=== PATIENT | male | born 1975 | race Caucasian/White ===

== ENCOUNTER 2022-03-22 11:19 | Inpatient (IN) | payer BC, OTHER ==
[~2022-03-22] VITALS: Ht 180.3 cm; Wt 92.0 kg
[2022-03-22] MEDS ORDERED: SODIUM CHLORIDE 0.9% 1,000 ML IV ONE ×2 (12:30→15:15)
[2022-03-22] MEDS ORDERED: SODIUM CHLORIDE 0.9% 1,000 ML IVB ONE (12:30)
[2022-03-22 13:13] LABS: Partial Thromboplastin Time 27.6 sec (24.6-33.4)
[2022-03-22 13:14] LABS: Basophils # (auto) 0.1 10 ^3/uL (0-0.2); Eosinophils # (auto) 0.2 10 ^3/uL (0-0.8); Hematocrit 40.5 % (41.0-53.0); Monocytes # (auto) 0.3 10 ^3/uL (0-1.3); Neutrophils % (auto) 64.7 % (37.0-80.0); Nucleated Red Blood Cells % 0.1 %; Red Cell Distribution Width 15.9 % (11.8-14.3)
[2022-03-22 13:17] LABS: Basophils % (auto) 1.3 % (0.0-2.0); Eosinophils % (auto) 3.4 % (0.0-7.0); Hemoglobin 13.1 g/dL (13.5-17.5); Lymphocytes # (auto) 1.9 10 ^3/uL (0.4-5.4); Lymphocytes % (auto) 26.5 % (10.0-50.0); Mean Corpuscular Hemoglobin 25.6 pg (28.0-32.0); Mean Corpuscular Hgb Conc. 32.5 g/dL (32.0-36.0); Mean Corpuscular Volume 78.7 fL (80.0-100.0); Monocytes % (auto) 4.1 % (0.0-12.0); Neutrophils # (auto) 4.6 10 ^3/uL (1.6-8.6); Red Blood Cells 5.14 10^6/uL (4.5-5.90)
[2022-03-22 13:18] LABS: Albumin 4.4 g/dL (3.4-5.0); Calcium 8.9 mg/dL (8.5-10.1); Potassium 4.3 mmol/L (3.5-5.1)
[2022-03-22 13:21] LABS: BUN/Creatinine Ratio 8.7; Total Protein 7.4 g/dL (6.4-8.2)
[2022-03-22] MEDS ORDERED: hydrALAZINE HCL 20 MG/ML VL IV PRN (15:15)
[2022-03-22] MEDS: SODIUM CHLORIDE 0.9% 1,000 ML IV SCH ×2 (15:56→23:35)
[2022-03-22] MEDS: HYDROmorphone HCL 2 MG/ML VL/or syr IV PRN ×3 (15:57→23:05)
[2022-03-22] MEDS: ONDANSETRON HCL 4 MG/2 ML VIAL IV PRN (15:57)
[2022-03-22 16:07] LABS: Urine Bacteria NONE SEEN /hpf (None Seen); Urine Blood Negative /uL (Negative); Urine Mucus MODERATE (None Seen); Urine WBC 1 /hpf (0 - 3)
[2022-03-22] MEDS ORDERED: TEMAZEPAM 15 MG CAP PO ONE (21:00)
[2022-03-23] MEDS: HYDROmorphone HCL 2 MG/ML VL/or syr IV PRN ×3 (02:36→09:25)
[2022-03-23 06:40] LABS: Basophils # (auto) 0.1 10 ^3/uL (0-0.2); Eosinophils # (auto) 0.4 10 ^3/uL (0-0.8); Eosinophils % (auto) 6.2 % (0.0-7.0); Hematocrit 37.5 % (41.0-53.0); Hemoglobin 12.1 g/dL (13.5-17.5); Mean Corpuscular Hemoglobin 25.6 pg (28.0-32.0); Mean Corpuscular Hgb Conc. 32.3 g/dL (32.0-36.0); Monocytes # (auto) 0.4 10 ^3/uL (0-1.3); Neutrophils # (auto) 2.8 10 ^3/uL (1.6-8.6); Potassium 4.2 mmol/L (3.5-5.1)
[2022-03-23 06:43] LABS: Basophils % (auto) 1.4 % (0.0-2.0); Lymphocytes # (auto) 2.6 10 ^3/uL (0.4-5.4); Lymphocytes % (auto) 41.3 % (10.0-50.0); Mean Corpuscular Volume 79.3 fL (80.0-100.0); Monocytes % (auto) 6.7 % (0.0-12.0); Neutrophils % (auto) 44.4 % (37.0-80.0); Nucleated Red Blood Cells % 0.3 %; Red Blood Cells 4.72 10^6/uL (4.5-5.90); Red Cell Distribution Width 15.8 % (11.8-14.3); White Blood Cell 6.2 10^3/uL (4.4-10.8)
[2022-03-23 06:48] LABS: Albumin 4.2 g/dL (3.4-5.0); BUN/Creatinine Ratio 12.3; Bilirubin, Total 1.6 mg/dL (0.2-1.0); Calcium 8.6 mg/dL (8.5-10.1); Total Protein 6.8 g/dL (6.4-8.2)
[2022-03-23 08:32] VITALS: BP 143/95
[2022-03-23 09:00] VITALS: BP 143/95
[2022-03-23] MEDS: PANTOPRAZOLE 40 MG/10 ML VIAL INJ IV SCH (09:24)
[2022-03-23] MEDS: ONDANSETRON HCL 4 MG/2 ML VIAL IV PRN ×2 (09:25→13:53)
[2022-03-23] MEDS: SODIUM CHLORIDE 0.9% 1,000 ML IV SCH ×3 (09:34→21:50)
[2022-03-23] MEDS ORDERED: HYDR-4072 PO (11:02)
[2022-03-23] MEDS ORDERED: ANAS1TAB7 PO (11:02)
[2022-03-23] MEDS ORDERED: BUSP7.5T8 PO (11:02)
[2022-03-23 13:00] VITALS: BP 138/88
[2022-03-23] MEDS ORDERED: ACETAMINOPHEN 500 MG TAB PO PRN (13:45)
[2022-03-23 16:51] VITALS: BP 122/86
[2022-03-23] MEDS ORDERED: KETOROLAC TROMETH 30 MG/ML 1ML VIAL IV ONE (20:30)
[2022-03-23 22:00] VITALS: BP 144/90
[2022-03-23] MEDS ORDERED: NITROGLYCERIN 2% OINT 1GM PKG TD SCH (22:00)
[2022-03-24 04:51] VITALS: BP 138/86
[2022-03-24] MEDS ORDERED: LORazepam 2MG/ML-1ML VIAL IV PRN (07:00)
[2022-03-24 08:48] VITALS: BP 136/88
[2022-03-24] MEDS: PANTOPRAZOLE 40 MG/10 ML VIAL INJ IV SCH (10:26)
[2022-03-24] MEDS: HYDROCORTISONE ACET 25 MG RECTAL SUPP PR SCH ×2 (10:26→18:23)
[2022-03-24 13:00] VITALS: BP 131/92
[2022-03-24 16:33] VITALS: BP 148/94
[2022-03-24] MEDS: HYDROcodone-ACET 7.5/325MG TAB PO PRN (17:14)
[2022-03-24 22:00] VITALS: BP 133/91
[2022-03-25] MEDS: HYDROcodone-ACET 7.5/325MG TAB PO PRN ×2 (01:49→10:42)
[2022-03-25] MEDS: HYDROCORTISONE ACET 25 MG RECTAL SUPP PR SCH ×3 (01:50→17:45)
[2022-03-25 05:00] VITALS: BP 125/87
[2022-03-25 09:09] VITALS: BP 126/82
[2022-03-25] MEDS: PANTOPRAZOLE 40 MG/10 ML VIAL INJ IV SCH (10:42)
[2022-03-25 12:39] VITALS: BP 150/87
[2022-03-25 16:47] VITALS: BP 142/87
[2022-03-25 17:38] VITALS: BP 151/99
== END 2022-03-25 18:00 | disposition home or self-care (01) | DRG 395 ==
LOC: ER 11:23 → OVERFLOW 15:12 → WEST WING 03-23 08:08
PROVIDERS: ADMIT Nurse Practitioner Family; ATTEND Internal Medicine
DX: K64.8 Other hemorrhoids (principal); K64.4 Residual hemorrhoidal skin tags; E86.0 Dehydration; I10 Essential (primary) hypertension; I16.0 Hypertensive urgency; K64.5 Perianal venous thrombosis; R00.0 Tachycardia, unspecified; M47.9 Spondylosis, unspecified; Z20.822 Contact with and (suspected) exposure to COVID-19
CPT/HCPCS: 36415; 74176; 80053; 81001; 85025; 85610; 85730; 87081; 87426; 96360; C9113; G0378; J1885; J2405

== ENCOUNTER 2024-07-04 08:38 | Inpatient (IN) | payer BC ==
[~2024-07-04] VITALS: Ht 180.3 cm; Wt 94.7 kg
[~2024-07-04 08:38] MED LIST: ANAS1TAB7 PO; BUSP7.5T8 PO; HYDR-4072 PO
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
[2024-07-04] MEDS: CLINDAMYCIN 900MG IV 50 ML IV ONE (09:15)
[2024-07-04] MEDS: cefTRIAXone 1GM/50ML D5W 50 ML IV ONE (09:39)
[2024-07-04] MEDS: KETOROLAC TROMETH 30 MG/ML 1ML VIAL IV ONE (09:39)
[2024-07-04 09:50] LABS: Basophils # (auto) 0.1 10 ^3/uL (0-0.2); Basophils % (auto) 0.7 % (0.0-2.0); Eosinophils # (auto) 0.2 10 ^3/uL (0-0.8); Eosinophils % (auto) 1.2 % (0.0-7.0); Hematocrit 46.2 % (41.0-53.0); Hemoglobin 15.8 g/dL (13.5-17.5); Lymphocytes # (auto) 1.9 10 ^3/uL (0.4-5.4); Lymphocytes % (auto) 11.9 % (10.0-50.0); Mean Corpuscular Hemoglobin 29.9 pg (28.0-32.0); Mean Corpuscular Hgb Conc. 34.1 g/dL (32.0-36.0); Mean Corpuscular Volume 87.8 fL (80.0-100.0); Monocytes # (auto) 1.1 10 ^3/uL (0-1.3); Neutrophils # (auto) 12.9 10 ^3/uL (1.6-8.6); Neutrophils % (auto) 79.2 % (37.0-80.0); Platelet Count (auto) 244 10^3/uL (140-450); Red Blood Cells 5.27 10^6/uL (4.5-5.90); Red Cell Distribution Width 13.9 % (11.8-14.3); White Blood Cell 16.3 10^3/uL (4.4-10.8)
[2024-07-04 09:53] LABS: Chloride 102 mmol/L (98-107); Potassium 3.7 mmol/L (3.5-5.1); Sodium 136 mmol/L (136-145)
[2024-07-04 09:54] LABS: Anion Gap 9 (5-15); Carbon Dioxide 25 mmol/L (20-31)
[2024-07-04 09:55] LABS: Calcium 9.8 mg/dL (8.7-10.4)
[2024-07-04 09:59] LABS: BUN/Creatinine Ratio 11.8 (10.0-20.0); Blood Urea Nitrogen 14 mg/dL (9-23); Glucose 102 mg/dL (74-106)
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
[2024-07-04] MEDS ORDERED: ACETAMINOPHEN 325 MG TAB PO PRN (13:00)
[2024-07-04] MEDS ORDERED: MORPHINE SULFATE INJ 2 MG/ml SYRG IV PRN (13:00)
[2024-07-04] MEDS ORDERED: IBUPROFEN 600 MG TAB PO PRN (13:00)
[2024-07-04] MEDS ORDERED: NITROGLYCERIN 0.4 MG SL TAB SL PRN (13:00)
[2024-07-04] MEDS ORDERED: ONDANSETRON HCL 4 MG/2 ML VIAL IV PRN (13:00)
[2024-07-04] MEDS ORDERED: PROP80TA2 PO (13:01)
[2024-07-04] MEDS ORDERED: ALBUTEROL SULF 2.5 MG/0.5ML(0.5%) NEB SOLN NEB PRN (13:15)
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
[2024-07-04 14:24] LABS: Erythrocyte Sedimentation Rate 11 mm/hr (0-20)
[2024-07-04 14:51] VITALS: BP 142/78; PULSE 94; RESP 18; TEMP 97.9; O2SAT 98
[2024-07-04] MEDS: CLINDAMYCIN 600MG IV 50 ML IV SCH (14:58)
[2024-07-04] MEDS: KETOROLAC TROMETH 60MG/2ML VIAL IM PRN (15:24)
[2024-07-04 15:53] VITALS: BP 142/78; PULSE 94; RESP 18; TEMP 97.9; O2SAT 98
--- NOTE | 2024-07-04 16:35 | DVH ---
CLINICAL HISTORY: Right upper extremity pain. COMPARISON: None TECHNIQUE: Compression evaluation and color Doppler evaluation of the deep veins of the right upper e xtremity was performed. Evaluation for augmentation and flow characteristics with doppler pulse wave imaging was performed. Realtime grayscale and Doppler ultrasound images of the deep venous structures with spectral waveform analysis were obtained. FINDINGS: This examination demonstrates normal compression, augmentation, and phasic flow of the deep veins of the right upper extremity with no evidence for thrombus within the internal jugular, subcla vian, axillary, brachial, radial, and ulnar veins. The right basilic vein and cephalic veins demonstr ated normal compression and color flow. IMPRESSION: There is no evidence for DVT in the right upper extremity.
[2024-07-04 20:00] VITALS: PULSE 85; RESP 18; O2SAT 98
[2024-07-04 21:00] VITALS: BP 105/55; PULSE 90; RESP 18; TEMP 97.7; O2SAT 95
[2024-07-04] MEDS: BUSPIRONE HCL 7.5 MG PO SCH (21:35)
[2024-07-04] MEDS: PROPRANOLOL HCL 20 MG TAB PO SCH (21:41)
[2024-07-04] MEDS ORDERED: PROPRANOLOL HCL PO SCH (22:00)
[2024-07-05] VITALS (8 sets, daily range): BP systolic 102–139; BP diastolic 65–87; PULSE 74–92; RESP 16–19; TEMP 96.6–98.5; O2SAT 94–98
[2024-07-05 06:47] LABS: Basophils # (auto) 0.1 10 ^3/uL (0-0.2); Basophils % (auto) 0.7 % (0.0-2.0); Eosinophils # (auto) 0.2 10 ^3/uL (0-0.8); Hematocrit 43.6 % (41.0-53.0); Hemoglobin 15.1 g/dL (13.5-17.5); Lymphocytes # (auto) 1.1 10 ^3/uL (0.4-5.4); Lymphocytes % (auto) 9.6 % (10.0-50.0); Mean Corpuscular Hemoglobin 30.3 pg (28.0-32.0); Mean Corpuscular Hgb Conc. 34.7 g/dL (32.0-36.0); Mean Corpuscular Volume 87.3 fL (80.0-100.0); Monocytes # (auto) 0.7 10 ^3/uL (0-1.3); Monocytes % (auto) 6.1 % (0.0-12.0); Neutrophils % (auto) 81.6 % (37.0-80.0); Platelet Count (auto) 207 10^3/uL (140-450); Red Blood Cells 4.99 10^6/uL (4.5-5.90); Red Cell Distribution Width 13.7 % (11.8-14.3)
[2024-07-05 07:03] LABS: Alanine Aminotransferase 31 U/L (7-40); Albumin 4.2 g/dL (3.2-4.8); Anion Gap 6 (5-15); Aspartate Aminotransferase 20 U/L (13-40); BUN/Creatinine Ratio 14.4 (10.0-20.0); Blood Urea Nitrogen 17 mg/dL (9-23); Carbon Dioxide 30 mmol/L (20-31); Chloride 102 mmol/L (98-107); Glucose 105 mg/dL (74-106); Potassium 4.1 mmol/L (3.5-5.1); Sodium 138 mmol/L (136-145); Total Protein 6.3 g/dL (5.7-8.2)
[2024-07-05 07:04] LABS: Alkaline Phosphatase 44 U/L (46-116); Bilirubin, Total 1.3 mg/dL (0.2-1.0); Calcium 8.3 mg/dL (8.7-10.4)
[2024-07-05] MEDS ORDERED: cefTRIAXone 1GM/50ML D5W 50 ML IV SCH (09:00)
--- NOTE | 2024-07-05 11:43 | DVHPN2 ---
Subjective 49-year-old male who was admitted for swelling and pain in his right elbow and forearm He has cellulitis Today he says he is feeling somewhat better his arm is less swollen Changes from previous H/P or p: Changes Gastrointestinal: Nausea Musculoskeletal: arm pain Skin: Other (Erythema right upper extremity) Objective Vitals Vital Signs Date Time Temp Pulse Resp B/P (MAP) Pulse Ox O2 Delivery O2 Flow Rate FiO2 07/05/24 09:00 97.5 83 18 133/87 (102) 95 97.5 07/05/24 08:00 Room Air* 0 21 Intake/Output Intake and Output 07/05/24 07:00 Intake Total 1300 ml Balance 1300 ml Intake Oral 1150 ml IV Total 150 ml # Voids 8 General Appearance: Alert, Oriented X3, Cooperative Lungs: Clear to auscultation, Normal air movement Cardiovascular: Regular rate, Normal S1, Normal S2, No murmurs Abdomen: Normal bowel sounds, Soft, No tenderness Extremities: No edema, Other (Right arm edema and erythema at the elbow and the forearm) Medications Current Medications Medications Dose Ordered Sig/Chuyita Route Start Time Stop Time Status Last Admin Dose Admin Ondansetron HCl 4 mg Q4HP PRN IV 07/04/24 13:00 Acetaminophen 650 mg Q6HP PRN PO 07/04/24 13:00 Nitroglycerin 0.4 mg Q5MINP PRN SL 07/04/24 13:00 Morphine Sulfate 2 mg Q30M PRN IV 07/04/24 13:00 Clindamycin Phosphate 50 ml @ 50 mls/hr Q8HR IV 07/04/24 14:00 07/05/24 05:37 50 MLS/HR Ibuprofen 600 mg Q8HP PRN PO 07/04/24 13:00 Patient Own Medication 1 tab 2XW PO 07/07/24 12:00 Future Hold Patient Own Medication 1 tab BID PO 07/04/24 22:00 Patient Own Medication 1 tab BID PO 07/04/24 22:00 UNV Albuterol 2.5 mg Q4HPRN PRN NEB 07/04/24 13:15 Cancel Ketorolac Tromethamine 60 mg Q12HP PRN IM 07/04/24 13:15 07/09/24 13:14 07/05/24 04:23 60 MG Propranolol HCl 80 mg BID PO 07/04/24 22:00 Laboratory Results Laboratory Tests 07/05/24 06:14 Chemistry Test 07/05/24 06:14 Albumin 4.2 g/dL (3.2-4.8) Calcium Level 8.3 mg/dL (8.7-10.4) L Total Protein 6.3 g/dL (5.7-8.2) LFT Test 07/05/24 06:14 Alanine Aminotransferase (ALT) 31 U/L (7-40) Alkaline Phosphatase 44 U/L (46-116) L Aspartate Amino Transferase (AST) 20 U/L (13-40) Total Bilirubin 1.3 mg/dL (0.2-1.0) H Microbiology Microbiology Date/Time Source Procedure Growth Status 07/04/24 09:16 Blood Blood Culture - Preliminary NO GROWTH AFTER 24 HOURS OF INCUBATION. Resulted Assessment/Plan Assessment/Plan Cellulitis of the right upper extremity Hypertension Chronic low back pain Plan IV antibiotics with cefazolin and vancomycin Monitor closely Resume the home medications The rest of the management will depend on the hospital course Discussed with his and the patient Plan discussed with: Patient, Spouse Date of Service: July 05, 2024 Billing Provider: GLENDY FERGUSON MD Common Visit Codes: [id number] INP/OBS CARE(HIGH) GLENDY FERGUSON MD July 05, 2024 11:43
[2024-07-05] MEDS ORDERED: VANCOMYCIN PER PHARMACY 0 MG IV SCH (11:45)
[2024-07-05] MEDS: VANCOMYCIN 1GM/200ML PM 200 ML IV SCH (12:07)
[2024-07-05] MEDS: KETOROLAC TROMETH 30 MG/ML 1ML VIAL IV PRN (12:07)
[2024-07-05] MEDS: ceFAZolin 1GM/50ML 50 ML IV SCH (14:00)
[2024-07-05] MEDS: VANCOMYCIN 1GM/200ML PM 200 ML IV ONE (14:38)
[2024-07-06] VITALS (7 sets, daily range): BP systolic 138–167; BP diastolic 77–92; PULSE 84–90; RESP 14–18; TEMP 97.9–98.4; O2SAT 97–98
--- NOTE | 2024-07-06 11:48 | DVHPN2 ---
Subjective This morning he says his arm is more swollen and more tender Changes from previous H/P or p: Changes Gastrointestinal: Nausea Musculoskeletal: arm pain Skin: Other (Erythema right upper extremity) Objective Vitals Vital Signs Date Time Temp Pulse Resp B/P (MAP) Pulse Ox O2 Delivery O2 Flow Rate FiO2 07/06/24 08:50 98.0 89 17 144/77 (99) 98 98.0 07/06/24 08:00 Room Air* 0 21 Intake/Output Intake and Output 07/06/24 07:00 Intake Total 1270 ml Balance 1270 ml Intake Oral 920 ml IV Total 350 ml # Voids 5 General Appearance: Alert, Oriented X3, Cooperative Lungs: Clear to auscultation, Normal air movement Cardiovascular: Regular rate, Normal S1, Normal S2, No murmurs Abdomen: Normal bowel sounds, Soft, No tenderness Extremities: No edema, Other (Right arm edema and erythema at the elbow and the forearm) Medications Current Medications Medications Dose Ordered Sig/Chuyita Route Start Time Stop Time Status Last Admin Dose Admin Ondansetron HCl 4 mg Q4HP PRN IV 07/04/24 13:00 Acetaminophen 650 mg Q6HP PRN PO 07/04/24 13:00 Nitroglycerin 0.4 mg Q5MINP PRN SL 07/04/24 13:00 Morphine Sulfate 2 mg Q30M PRN IV 07/04/24 13:00 Patient Own Medication 1 tab 2XW PO 07/07/24 12:00 Future Hold Patient Own Medication 1 tab BID PO 07/04/24 22:00 Patient Own Medication 1 tab BID PO 07/04/24 22:00 UNV Albuterol 2.5 mg Q4HPRN PRN NEB 07/04/24 13:15 Cancel Propranolol HCl 80 mg BID PO 07/04/24 22:00 Vancomycin HCl 0 ml @ 0 mls/hr UD IV 07/05/24 11:45 Vancomycin HCl 200 ml @ 200 mls/hr DAILY@1200 IV 07/06/24 12:00 Meropenem 50 ml @ 17 mls/hr Q8HR IV 07/06/24 14:00 UNV Morphine Sulfate 2 mg Q4HPRN PRN IV 07/06/24 11:30 UNV Acetaminophen/ Hydrocodone Bitart 1 tab Q6HPRN PRN PO 07/06/24 11:30 UNV Laboratory Results Laboratory Tests 07/05/24 06:14 07/06/24 05:52 Microbiology Microbiology Date/Time Source Procedure Growth Status 07/04/24 09:16 Blood Blood Culture - Preliminary NO GROWTH AFTER 48 HOURS OF INCUBATION. Resulted Assessment/Plan Assessment/Plan Cellulitis of the right upper extremity Hypertension Chronic low back pain Plan IV antibiotics with cefazolin and vancomycin Monitor closely Resume the home medications The rest of the management will depend on the hospital course Discussed with his and the patient 07/06/2024: Continue IV antibiotics, switch cefazolin to meropenem, continue vancomycin Get CT scan of the right arm to rule out necrotizing fasciitis Insert a midline Sandy and Morphine p.r.n. for the pain Monitor the patient closely Plan discussed with: Patient My Orders Orders - GLENDY FERGUSON MD Procedure Category Date Status Time Vancomycin 1gm/200ml PHA 07/06/24 In Process Pm 12:00 Vancomycin,Trough LAB 07/08/24 Verified 11:00 Creatinine LAB 07/08/24 Verified 11:00 Vancomycin Per SELVIN 07/08/24 In Process Pharmacy Protoc 12:00 Ct Rt Forearm Wo CT 07/06/24 Logged Contrast 11:21 Meropenem 1gm Ivpb PHA 07/06/24 Logged (Merrem 1gm/ Ns) 14:00 Morphine Sulfate PHA 07/06/24 Logged Injection 11:30 Hydrocodone-Acet PHA 07/06/24 Logged 5/325mg Tab (Sandy 11:30 Date of Service: July 06, 2024 Billing Provider: GLENDY FERGUSON MD Common Visit Codes: [id number] INP/OBS CARE(HIGH) GLENDY FERGUSON MD July 06, 2024 11:48
[2024-07-06] MEDS: VANCOMYCIN 1GM/200ML PM 200 ML IV SCH (12:53)
[2024-07-06] MEDS: MORPHINE SULFATE INJ 2 MG/ml SYRG IV PRN (12:57)
--- NOTE | 2024-07-06 12:58 | DVH ---
CLINICAL INDICATION: cellulitis TECHNIQUE: Noncontrast CT of the right forearm was performed. Sagittal and coronal reformatted images are provided. COMPARISON: Radiograph of the right forearm dated 07/04/2024. CT Dose: CTDI volume is 7.75 mGy. Dose-length product is 281.93 mGy*cm FINDINGS: No fracture or dislocation. No evidence of cortical destruction. Joint spaces are maintain ed. Subcutaneous edema is present in the posterior aspect of the elbow. No fluid collection. IMPRESSION: 1. Subcutaneous edema in the posterior elbow, nonspecific but may represent cellulitis in the appropr iate clinical setting. No fluid collection. 2. No acute osseous abnormality. All CT scans at this medical facility are performed using dose modulation techniques as appropriate t o a performed exam including the following: Automated exposure control was utilized; adjustment of th e MA and/or KV according to patient size; and use of iterative reconstruction technique.
[2024-07-06] MEDS: MEROPENEM 1GM IVPB 50 ML IV SCH (14:37)
[2024-07-06] MEDS: HYDROcodone-ACET 5/325MG TAB PO PRN (15:20)
[2024-07-06] MEDS: LISINOPRIL 20 MG TAB PO ONE (17:56)
[2024-07-07] VITALS (7 sets, daily range): BP systolic 118–151; BP diastolic 71–92; PULSE 67–78; RESP 15–18; TEMP 36.6; O2SAT 94–99
[2024-07-07] MEDS: LISINOPRIL 20 MG TAB PO SCH (09:43)
--- NOTE | 2024-07-07 10:56 | DVHPN2 ---
Subjective Doing well Right Arm looks less swollen and less tender CT scan of the right arm did not show any fluid collection or any other alarming signs Changes from previous H/P or p: Changes Gastrointestinal: Nausea Musculoskeletal: arm pain Skin: Other (Erythema right upper extremity) Objective Vitals Vital Signs Date Time Temp Pulse Resp B/P (MAP) Pulse Ox O2 Delivery O2 Flow Rate FiO2 07/07/24 09:44 74 138/77 07/07/24 08:55 98.0 17 99 98.0 07/07/24 08:00 Room Air* 0 21 Intake/Output Intake and Output 07/07/24 07:00 Intake Total 2300 ml Balance 2300 ml Intake Oral 2050 ml IV Total 250 ml # Voids 7 # Bowel Movements 1 General Appearance: Alert, Oriented X3, Cooperative Lungs: Clear to auscultation, Normal air movement Cardiovascular: Regular rate, Normal S1, Normal S2, No murmurs Abdomen: Normal bowel sounds, Soft, No tenderness Extremities: No edema, Other (Right arm edema and erythema at the elbow and the forearm) Medications Current Medications Medications Dose Ordered Sig/Chuyita Route Start Time Stop Time Status Last Admin Dose Admin Ondansetron HCl 4 mg Q4HP PRN IV 07/04/24 13:00 Acetaminophen 650 mg Q6HP PRN PO 07/04/24 13:00 Nitroglycerin 0.4 mg Q5MINP PRN SL 07/04/24 13:00 Morphine Sulfate 2 mg Q30M PRN IV 07/04/24 13:00 Patient Own Medication 1 tab 2XW PO 07/07/24 12:00 Future Hold Patient Own Medication 1 tab BID PO 07/04/24 22:00 Patient Own Medication 1 tab BID PO 07/04/24 22:00 UNV Albuterol 2.5 mg Q4HPRN PRN NEB 07/04/24 13:15 Cancel Propranolol HCl 80 mg BID PO 07/04/24 22:00 07/07/24 09:44 80 MG Vancomycin HCl 0 ml @ 0 mls/hr UD IV 07/05/24 11:45 Vancomycin HCl 200 ml @ 200 mls/hr DAILY@1200 IV 07/06/24 12:00 07/06/24 12:53 200 MLS/HR Meropenem 50 ml @ 17 mls/hr Q8HR IV 07/06/24 14:00 07/07/24 06:22 17 MLS/HR Morphine Sulfate 2 mg Q4HPRN PRN IV 07/06/24 11:30 07/07/24 06:32 2 MG Acetaminophen/ Hydrocodone Bitart 1 tab Q6HPRN PRN PO 07/06/24 11:30 07/07/24 08:36 1 TAB Lisinopril 20 mg DAILY PO 07/07/24 10:00 07/07/24 09:43 20 MG Laboratory Results Laboratory Tests 07/05/24 06:14 07/07/24 05:30 Microbiology Microbiology Date/Time Source Procedure Growth Status 07/04/24 09:16 Blood Blood Culture - Preliminary NO GROWTH AFTER 72 HOURS OF INCUBATION. Resulted Assessment/Plan Assessment/Plan Cellulitis of the right upper extremity Hypertension Chronic low back pain Plan IV antibiotics with cefazolin and vancomycin Monitor closely Resume the home medications The rest of the management will depend on the hospital course Discussed with his and the patient 07/06/2024: Continue IV antibiotics, switch cefazolin to meropenem, continue vancomycin Get CT scan of the right arm to rule out necrotizing fasciitis Insert a midline [place] and Morphine p.r.n. for the pain Monitor the patient closely 07/07/2024: CT scan of the right arm did not show any alarming signs, no pockets or any fluid collections, no signs of necrotizing fasciitis Continue IV antibiotics Switch meropenem to ertapenem 1 g IV daily Continue vancomycin Insert a PICC line or a midline Arrange IV antibiotics at home with ertapenem 1 g IV daily for 10 days Discharge planning once the above is done Plan discussed with: Patient, Spouse My Orders Orders - GLENDY FERGUSON MD Procedure Category Date Status Time Ct Rt Forearm Wo CT 07/06/24 Resulted Contrast 11:21 Meropenem 1gm Ivpb PHA 07/06/24 In Process (Merrem 1gm/ Ns) 14:00 Morphine Sulfate PHA 07/06/24 In Process Injection 11:30 Hydrocodone-Acet PHA 07/06/24 In Process 5/325mg Tab ([place] 11:30 Insert Midline ORDERS 07/06/24 Transmitted 12:00 Date of Service: July 07, 2024 Billing Provider: GLENDY FERGUSON MD Common Visit Codes: [id number] INP/OBS CARE(HIGH) GLENDY FERGUSON MD July 07, 2024 10:56
[2024-07-07] MEDS: ERTAPENEM SOD INJ 1 GM in SODIUM CHL 0.9% 50 ML IV ONE (13:18)
--- NOTE | 2024-07-07 15:52 | DVHDS2 ---
Discharge Summary Date of Admission July 04, 2024 at 12:56 Date of Discharge: July 07, 2024 Labs/Diagnostic Data: Laboratory Results Test 07/07/24 05:30 07/05/24 06:14 07/04/24 09:04 Creatinine 1.31 mg/dL (0.700-1.30) Glomerular Filtration Rate Calc 68 mL/min (>90) White Blood Count 11.0 10^3/uL (4.4-10.8) Red Blood Count 4.99 10^6/uL (4.5-5.90) Hemoglobin 15.1 g/dL (13.5-17.5) Hematocrit 43.6 % (41.0-53.0) Mean Corpuscular Volume 87.3 fL (80.0-100.0) Mean Corpuscular Hemoglobin 30.3 pg (28.0-32.0) Mean Corpuscular Hemoglobin Concent 34.7 g/dL (32.0-36.0) Red Cell Distribution Width 13.7 % (11.8-14.3) Platelet Count 207 10^3/uL (140-450) Mean Platelet Volume 7.8 fL (6.9-10.8) Neutrophils (%) (Auto) 81.6 % (37.0-80.0) Lymphocytes (%) (Auto) 9.6 % (10.0-50.0) Monocytes (%) (Auto) 6.1 % (0.0-12.0) Eosinophils (%) (Auto) 2.0 % (0.0-7.0) Basophils (%) (Auto) 0.7 % (0.0-2.0) Neutrophils # (Auto) 9.0 10 ^3/uL (1.6-8.6) Lymphocytes # (Auto) 1.1 10 ^3/uL (0.4-5.4) Monocytes # (Auto) 0.7 10 ^3/uL (0-1.3) Eosinophils # (Auto) 0.2 10 ^3/uL (0-0.8) Basophils # (Auto) 0.1 10 ^3/uL (0-0.2) Nucleated Red Blood Cells 0.0 % Sodium Level 138 mmol/L (136-145) Potassium Level 4.1 mmol/L (3.5-5.1) Chloride Level 102 mmol/L (98-107) Carbon Dioxide Level 30 mmol/L (20-31) Anion Gap 6 (5-15) Blood Urea Nitrogen 17 mg/dL (9-23) BUN/Creatinine Ratio 14.4 (10.0-20.0) Serum Glucose 105 mg/dL (74-106) Calcium Level 8.3 mg/dL (8.7-10.4) Total Bilirubin 1.3 mg/dL (0.2-1.0) Aspartate Amino Transferase (AST) 20 U/L (13-40) Alanine Aminotransferase (ALT) 31 U/L (7-40) Alkaline Phosphatase 44 U/L (46-116) Total Protein 6.3 g/dL (5.7-8.2) Albumin 4.2 g/dL (3.2-4.8) Erythrocyte Sedimentation Rate 11 mm/hr (0-20) Lactic Acid Level 0.9 mmol/L (0.4-2.0) C-Reactive Protein High Sensitivity 17.48 mg/dL (<1.0) Other Laboratory Tests 07/07/24 05:30 07/05/24 06:14 Brief Hx & Hospital Course: Final diagnoses: Right forearm cellulitis Hypertension Chronic low back pain 49 year old male was admitted for swelling and redness of the right arm He was started on IV antibiotics He initially said his arm was more swollen, we did a CT which shoed no worsening or fluid collection Today he felt better and with less edema He was discharged on IV Ertapenem 1 gm daily x 10 days via a midline and home health Follow up with YOHANA CALVILLO and resume the home med Condition at Discharge: Stable Final Diagnosis/Problems List RUE cellulitis Discharge Disposition: Home SNF Discharge Will this Physician continue t: No Discharge Instruct/Medications Diet: Cardiac 2g Na,low cholest Activity: No Restrictions, As Tolerated Follow Up/Referral: PCP KARLI Medications: Ertapenem 1 gm daily IV x 10 days by home health Discharge Statement: "Patient was advised to return to the ER or call 911 if any headaches, dizziness, shortness of breath, chest pain, abdominal pain, bleeding, fevers, or worsening of medical condition. Patient was counseled about treatment plan, medications, possible side effects, patient�verbalized understanding. All questions were answered to the best of my ability. This discharge took greater then 30 minutes in planning, reviewing documentation, counseling the patient, and discussing with other team members." ASSESSMENT ASSESSMENT Assessment RUE cellulitis Date of Service: July 07, 2024 Billing Provider: GLENDY FERGUSON MD Common Visit Codes: 98002-UNI/OBS DISCH DAY >30min GLENDY FERGUSON MD July 07, 2024 15:52
[2024-07-08] MEDS ORDERED: ERTAPENEM SOD INJ 1 GM in SODIUM CHL 0.9% 50 ML IV SCH (10:00)
== END 2024-07-07 17:30 | disposition home or self-care (01) | DRG 872 ==
LOC: ER 08:38 → EEVIPCON 08:38 → OVERFLOW 12:56 → EAST 17:12
PROVIDERS: ADMIT Internal Medicine Geriatric Medicine; ATTEND Internal Medicine Geriatric Medicine
PROC: 05HC33Z Insertion of Infusion Device into Left Basilic Vein, Percutaneous Approach (ICD-10-PCS; principal; 2024-07-07)
PROC: B54NZZA Ultrasonography of Left Upper Extremity Veins, Guidance (ICD-10-PCS; 2024-07-07)
DX: A41.9 Sepsis, unspecified organism (principal); L03.113 Cellulitis of right upper limb; I10 Essential (primary) hypertension; G89.29 Other chronic pain; M54.50 Low back pain, unspecified; Z88.8 Allergy status to other drugs, medicaments and biological substances; Z79.899 Other long term (current) drug therapy; Z79.891 Long term (current) use of opiate analgesic; Z79.1 Long term (current) use of non-steroidal anti-inflammatories (NSAID)
CPT/HCPCS: 36415; 73080; 73200; 80048; 80053; 82565; 83605; 85025; 85652; 86141; 87040; 93971; G0378; J1335; J1885; J2185; J3490

== ENCOUNTER 2024-11-16 10:07 | Emergency (ER) | payer BC ==
[~2024-11-16] VITALS: Ht 180.3 cm; Wt 92.4 kg
[~2024-11-16 10:07] MED LIST changes: -ANAS1TAB7 PO; +PROP80TA2 PO
[2024-11-16 10:11] VITALS: BP 170/112; RESP 18; TEMP 98.2; O2SAT 98
[2024-11-16 10:22] VITALS: PULSE 118
--- NOTE | 2024-11-16 10:27 | ECG ---
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
== END 2024-11-16 10:30 | disposition left against medical advice (07) ==
LOC: ER 10:07
DX: M54.12 Radiculopathy, cervical region (principal); I10 Essential (primary) hypertension; Z79.899 Other long term (current) drug therapy; Z87.891 Personal history of nicotine dependence; Z88.1 Allergy status to other antibiotic agents
CPT/HCPCS: 82947; 82962; 93005